=== PATIENT | female | born 1940 | race Native Hawaiian/Other Pacific Islander ===

== ENCOUNTER 2017-12-31 23:17 | Emergency (ER) | payer OTHER ==
[~2017-12-31] VITALS: Ht 165.1 cm; Wt 73.5 kg
[2017-12-31 23:49] VITALS: BP 183/78; TEMP 97.9
[2017-12-31] MEDS ORDERED: PROPRANOLOL80 MG (23:51)
[2018-01-01 00:05] LABS: PLATELET COUNT 214 K/uL (152-353)
[2018-01-01 00:14] LABS: POTASSIUM 3.7 mmol/L (3.6-5.2); SODIUM 141 mmol/L (136-145)
== END 2018-01-01 01:52 | disposition home or self-care (01) ==
LOC: ED 23:17
PROVIDERS: Specialist
DX: G45.9 Transient cerebral ischemic attack, unspecified (principal); R00.1 Bradycardia, unspecified
CPT/HCPCS: 36415; 80053; 80307; 81000; 82550; 82553; 83735; 84100; 84484; 85027; 85379; 99285